=== PATIENT | male | born 2005 | race Caucasian/White ===

== ENCOUNTER 2024-04-19 00:20 | Emergency (ER) | payer BC, SELFPAY ==
--- NOTE | ~2024-04-19 | CT_ITS ---
EXAMINATION: CT ABDOMEN AND PELVIS WITH CONTRAST CLINICAL INFORMATION: Right lower quadrant pain. COMPARISON: None available. TECHNIQUE: Multidetector volumetric images were obtained from the superior aspect of the liver through the pubic symphysis following administration 85 mL of Omnipaque 350 intravenous contrast. Sagittal and coronal reformatted images were obtained on the technologist's workstation. Oral contrast: No This CT examination was performed using dose optimization techniques as appropriate, variously including the following: *Automated exposure control *Adjustment of mA and/or kV according to patient size (this includes techniques or standardized protocols for targeted exams where dose is matched to indication/reason for exam; i.e. extremities or head) *Use of iterative reconstruction technique DLP: 407 mGy-cm FINDINGS: LUNG BASES: The visualized lung bases are unremarkable. LIVER, GALLBLADDER, AND BILIARY TREE: The liver is normal in size, shape, and attenuation. No focal hepatic lesion or biliary ductal dilatation is present. The gallbladder is unremarkable with no evidence of radiopaque gallstones, gallbladder wall thickening, or obvious pericholecystic inflammatory changes. PANCREAS: Unremarkable. SPLEEN: Unremarkable. ADRENAL GLANDS: Unremarkable. KIDNEYS AND URETERS: The kidneys are normal in size, shape, and attenuation. No hydronephrosis, hydroureter, or calculi seen. No perinephric stranding. There is a subcentimeter hypodensity lower pole right kidney likely a small cyst. BLADDER: Unremarkable. GASTROINTESTINAL TRACT: The small and large bowel are unremarkable. The appendix is unremarkable. ABDOMINAL WALL: No significant hernia is appreciated. LYMPH NODES: Normal. VASCULAR: Unremarkable. PELVIC VISCERA: The pelvic viscera are unremarkable. There is a small amount of free fluid within the pelvis. OSSEOUS STRUCTURES: Unremarkable. CT/CT abdomen pelvis w IV con IMPRESSION: 1. Small amount of free fluid within the pelvis. 2. No evidence of appendicitis. 3. Subcentimeter hypodensity lower pole right kidney likely a small cyst. Fleischner guidelines were followed. Electronically signed by: Hussain Huerta MD 04/19/2024 04:34 AM EDT
[2024-04-19 00:28] VITALS: BP 140/87; PULSE 59; RESP 18; TEMP 36.8; O2SAT 99; BMI 21.4
[2024-04-19 01:05] VITALS: BP 126/78; PULSE 55; RESP 18; TEMP 36.6; O2SAT 100
[2024-04-19 01:19] LABS: Hematocrit 40.5 % (42.0-52.0); Hemoglobin 13.7 g/dl (14.0-18.0); Mean Corpuscular HGB Conc 33.8 g/dl (31.0-36.0); Mean Corpuscular Hemoglobin 29.8 pg (27.0-33.0); Platelet Count 277 X10*3/uL (160-400); Red Cell Distribution Width 13.3 % (11.0-16.0); White Blood Count 9.2 X10*3/uL (4.8-10.8)
[2024-04-19 01:31] LABS: Alanine Aminotransferase 18 U/L (0-40); Albumin Level 4.7 g/dL (3.5-5.0); Alkaline Phosphatase 78 U/L (39-117); Anion Gap 14 (12-20); Aspartate Amino Transferase 26 U/L (5-37); Bilirubin Total 0.7 mg/dL (0.0-1.0); Blood Urea Nitrogen 13 mg/dL (9-16); Calcium 10.7 mg/dL (8.4-10.2); Carbon Dioxide 25 mmol/L (22-29); Chloride 107 mmol/L (96-108); Creatinine Clr Calc Pharmacy 97.9; Estimated Glomerular Filt Rate > 60; Glucose Random 95 mg/dL (60-115); Lipase 24 U/L (8-78); Potassium 3.8 mmol/L (3.3-5.1); Sodium 142 mmol/L (135-145); Total Protein 7.8 g/dL (6.5-8.0)
--- NOTE | 2024-04-19 01:56 | ED.ABDPAIN ---
HPI - Abdominal Pain General Chief Complaint: Abdominal Pain Stated Complaint: lower abd pain Time Seen by Provider: 04/19/24 01:51 Source: patient Mode of arrival: ambulatory Limitations: no limitations History of Present Illness ED Provider: junior LAKHANI narrative: Patient no significant past medical history noticed gradual onset of pain in lower abdomen since age p.m. more so in the right side gets worse on ambulation no nausea no vomiting no fever no urinary complaints never had similar pain in the past Related Data Allergies Allergy/AdvReac Type Severity Reaction Status Date / Time No Known Allergies Allergy Verified 04/19/24 00:31 Review of Systems Review of Systems Yes all other systems are reviewed and are negative PMFSH Social History Social History Smoked in Last 30 Days: No Use of substances other than those prescribed or required for medical reasons: No Advance Directives: No Advance Directives Information Provided: Yes Physical Exam ED Vital Signs: Vital Signs - 24 hr 04/19/24 00:28 04/19/24 01:05 04/19/24 03:32 Temperature 98.3 F 97.9 F Pulse Rate 59 55 Respiratory Rate 18 18 14 Blood Pressure 140/87 H 126/78 Pulse Oximetry 99 100 Oxygen Delivery Method Room Air Room Air 04/19/24 05:27 Temperature 98.3 F Pulse Rate 61 Respiratory Rate 16 Blood Pressure 124/73 Pulse Oximetry 98 Oxygen Delivery Method Room Air BMI result Body Mass Index 21.4 Appearance: Alert. Oriented X3. No acute distress. Eyes: No pallor or icterus ENT: Pharynx normal. Oral Mucosa moist Neck: Normal inspection. Neck supple. CVS: Normal heart rate and rhythm. Pulses normal. Respiratory: No respiratory distress. Equal air entry bilateral, no wheezing/rales/rhonchi Abdomen: Soft and deep tenderness right lower quadrant with guarding no rebound tenderness Bowel sounds are present, no mass palpable, no CVA tenderness Skin: Skin warm and dry. Normal skin color. Normal skin turgor. Extremities: No lower extremity edema. No calf tenderness Neuro: Oriented X 3. No motor deficit. Medical Decision Making Medical Decision Making [facility] Narrative: Patient with lower abdominal pain CT scan negative labs are stable discharge patient home likely patient had bowel gas/impending gastroenteritis Differential Diagnosis Differential Diagnoses: The differential diagnosis associated with the presentation includes Appendicitis/UTI/renal colic/constipation Admission/Observation Consideration of admission/observation: Escalation of care including admission/observation considered Lab Data MDM Lab Attestation statement: I reviewed the patient's lab results. 04/19/24 01:12 04/19/24 01:12 Labs: Lab Results 04/19/24 Range/Units 01:12 WBC 9.2 (4.8-10.8) X10*3/uL RBC 4.60 (4.60-5.80) X10*6/uL Hgb 13.7 L (14.0-18.0) g/dl Hct 40.5 L (42.0-52.0) % MCV 88.0 (80.0-98.0) fL MCH 29.8 (27.0-33.0) pg MCHC 33.8 (31.0-36.0) g/dl RDW 13.3 (11.0-16.0) % Plt Count 277 (160-400) X10*3/uL MPV 10.0 (9.4-12.4) fL Absolute Nucleated RBC 0.000 (0.0-0.012) X10*3/uL Nucleated RBC % (auto) 0.0 (0.0-0.2) /100WBC Sodium 142 (135-145) mmol/L Potassium 3.8 (3.3-5.1) mmol/L Chloride 107 (96-108) mmol/L Carbon Dioxide 25 (22-29) mmol/L Anion Gap 14 (12-20) BUN 13 (9-16) mg/dL Creatinine 1.15 (0.5-1.4) mg/dL Estim Creat Clear Calc 97.9 Estimated GFR > 60 Random Glucose 95 (60-115) mg/dL Calcium 10.7 H (8.4-10.2) mg/dL Total Bilirubin 0.7 (0.0-1.0) mg/dL AST 26 (5-37) U/L ALT 18 (0-40) U/L Alkaline Phosphatase 78 (39-117) U/L Total Protein 7.8 (6.5-8.0) g/dL Albumin 4.7 (3.5-5.0) g/dL Lipase 24 (8-78) U/L Independent Interpretation I performed an independent interpretation of an: CT Scan Radiology Impression Discussion of test interpretation with radiology: I have reviewed the radiologist's reading. Radiologist Impression: Negative for appendix Medications Administered Discontinued Medications Generic Name Dose Route Start Last Admin Trade Name Domenico PRN Reason Stop Dose Admin Sodium Chloride 1,000 mls @ 999 mls/hr 04/19/24 01:59 04/19/24 05:09 Ns IV 04/19/24 02:59 Infused .Q1H1M ONE Infusion Iohexol 85 ml 04/19/24 02:47 04/19/24 02:47 Iohexol 350 Mg/Ml 100 Ml Infus..Btl IV 04/19/24 02:48 85 ml ONCE ONE Administration Morphine Sulfate 4 mg 04/19/24 01:59 04/19/24 03:32 Morphine Sulfate 4 Mg/Ml Cartridge IVPUSH 04/19/24 02:00 Not Given ONCE ONE Protocol Ondansetron HCl 4 mg 04/19/24 01:59 04/19/24 03:33 Ondansetron Hcl 4 Mg/2 Ml Vial IVPUSH 04/19/24 02:00 Not Given ONCE ONE Discharge Plan Discharge Clinical Impression: Abdominal pain Patient Disposition: Home, Self-Care Instructions: Abdominal Pain (ED) Additional Instructions: Cause of your abdominal pain is not clear Your appendix is normal Drink plenty of fluids possible you might have diarrhea soon Stand Alone Forms: Work/School Release Interventions: ED Discharge Assessment Last Done: 04/19/24 05:27 Discharge Date/Time: 04/19/24 05:30 Print Language: Latvian
[2024-04-19] MEDS: iohexoL 350 MG/ML 100 ML INFUS..BTL 85 ML IV (02:47)
[2024-04-19 03:32] VITALS: RESP 14
[2024-04-19] MEDS: 0.9 % Sodium Chloride 1,000 ML 999 ML IV (03:33)
[2024-04-19 05:27] VITALS: BP 124/73; PULSE 61; RESP 16; TEMP 36.8; O2SAT 98
== END 2024-04-19 05:30 | disposition home or self-care (01) ==
PROVIDERS: Emergency Provider Internal Medicine; PCP Pediatrics
DX: R10.31 Right lower quadrant pain (principal)
CPT/HCPCS: 36415; 74177; 80053; 83690; 85027; 96360; 96361; 99285; Q9967